=== PATIENT | female | born 1950 | race Caucasian/White ===

== ENCOUNTER 2018-01-14 11:36 | Day surgery (SDC) | payer MEDICARE, OTHER | END 2018-01-14 14:53 | disposition home or self-care (01) | LOC: GIL 11:36 | DX: K29.60 Other gastritis without bleeding (principal); E78.5 Hyperlipidemia, unspecified; F17.200 Nicotine dependence, unspecified, uncomplicated | CPT/HCPCS: 43239; 88305 ==